=== PATIENT | female | born 1980 | race American Indian/Alaskan Native ===

== ENCOUNTER 2018-09-21 05:21 | Inpatient (IN) | payer OTHER ==
[2018-09-21] MEDS ORDERED: LACTATED RINGERS 500 ML IV ONE (05:33)
[2018-09-21] MEDS ORDERED: LACTATED RINGERS 1,000 ML IV SCH ×2 (06:00→10:00)
[2018-09-21 06:54] LABS: Bacteria,Urine 1+ /HPF (Negative); Bilirubin,Urine NEG (Negative); Blood,Urine NEG (Negative); Color,Urine Yellow (Yellow); Mucus,Urine FEW /HPF; Protein,Urine <15 mg/dL mg/dL (Negative); Urobilinogen,Urine < 2.0 mg/dL (<2.0)
[2018-09-21 07:32] LABS: Hematocrit 34.5 % (30.3-42.9); Hemoglobin 11.9 gm/dl (10.1-14.3); Mean Corpuscular HGB Conc 35 % (30-34); Mean Corpuscular Volume 80 fl (79-97); Platelet Count 657 K/mm3 (140-440); Red Blood Count 4.33 M/mm3 (3.65-5.03)
[2018-09-21] MEDS ORDERED: ZOFRAN IV PRN ×2 (09:02→09:44)
[2018-09-21] MEDS ORDERED: BRETHINE IVP PRN (09:02)
[2018-09-21] MEDS ORDERED: SUBLIMAZE IV PRN (09:02)
[2018-09-21] MEDS ORDERED: XYLOCAINE 2% INFILTRATI ONE (09:02)
[2018-09-21] MEDS ORDERED: BRETHINE SUB-Q PRN (09:02)
[2018-09-21] MEDS ORDERED: STADOL IV PRN (09:02)
[2018-09-21] MEDS ORDERED: AMPICILLIN/NS 2 GM/100 ML 2 GM/100 ML BAG IV ONE (09:02)
--- NOTE | 2018-09-21 09:09 | History and Physical Report ---
History of Present Illness Date of examination: 09/21/18 Date of admission: 09/21/18 09:01 Chief complaint: Labor History of present illness: Pt is a 38yo BF EDC 10/27/18; EGA 34 6/7 weeks presents to L&D complaining of RUC's q 2-4 mins. She received care in [place]. records are not available and GBS is unknown. BPP 6/8 with BARBARA 7.2 Past History Past Medical History: no pertinent history Past Surgical History: no surgical history Family/Genetic History: none Social history: no significant social history, single - Obstetrical History Expected Date of Delivery: 10/27/18 Actual Gestation: 34 Week(s) 6 Day(s) : 3 Medications and Allergies Allergies Allergy/AdvReac Type Severity Reaction Status Date / Time No Known Allergies Allergy Verified 09/21/18 05:33 Home Medications Medication Instructions Recorded Confirmed Last Taken Type Complete Caplet 1 tab PO DAILY 09/21/18 09/21/18 09/20/18 18:00 History Active Meds: Active Medications Lactated Ringer's (Lactated Ringers) 1,000 mls @ 125 mls/hr IV DIRECT QUIN Last Admin: 09/21/18 08:18 Dose: 125 mls/hr Documented by: Review of Systems All systems: negative - Vital Signs Vital signs: Vital Signs Temp BP 98.9 F 115/72 09/21/18 05:33 09/21/18 05:33 Temp Pulse Resp BP Pulse Ox 98.9 F 115/72 09/21/18 05:33 09/21/18 05:33 - Physical Exam Breasts: Positive: deferred Cardiovascular: Regular rate Lungs: Positive: Clear to auscultation Abdomen: Positive: normal appearance Genitourinary (Female): Positive: normal external genitalia Vagina: Positive: other (1+ meonium fluid) Uterus: Positive: enlarged Extremities: Positive: normal - Obstetrical FHR: category 1 Uterine Contraction Monitor Mode: External Cervical Dilatation: 10 Cervical Effacement Percentage: 100 station: +2 Uterine Contraction Pattern: Regular Uterine Tone Measurement Phase: Contraction Uterine Contraction Intensity: Strong/Firm Results Result Diagrams: 09/21/18 06:30 Abnormal lab results 09/21/18 Range/Units 06:30 MCHC 35 H (30-34) % RDW 20.0 H (13.2-15.2) % Plt Count 657 H (140-440) K/mm3 All other labs normal. Ultrasound: report reviewed (BPP /; BARBARA 7.2) Assessment and Plan - Patient Problems (1) 35 weeks gestation of Onset Date: 09/21/18 Current Visit: Yes Status: Acute Plan to address problem: A: IUP @ 34 6/7 weeks in labor Oligohydramnios Insufficient care Unknown GBS Meconium fluid P: Admit to L&D for expectant vaginal delivery Obtain labs NICU consultation (2) Insufficient care in third trimester Onset Date: 09/21/18 Current Visit: Yes Status: Acute
--- NOTE | 2018-09-21 09:23 | Procedure Note ---
OB Delivery Note - Delivery Date of Delivery: 09/21/18 Surgeon: BRUNO LAYNE Estimated blood loss: 100cc - Vaginal Delivery presentation: vertex Delivery position: OA Intrapartum events: no care, meconium, precipitous labor- <3hr Delivery induction: none Delivery monitor: external FHT, external uterine Route of delivery: Delivery placenta: spontaneous Delivery cord: nuchal cord, 3 umbilical vessels Episiotomy: none Delivery laceration: none Anesthesia: none Delivery comments: delivered OA and placed on Mom's chest for [id number] bonding and delayed cord clamping, cut by Dad - A at 1 minute: 8 at 5 minutes: 9 Infant Gender: Male ([id number])
[2018-09-21] MEDS ORDERED: LANSINOH TP PRN (09:44)
[2018-09-21] MEDS ORDERED: TUCKS PAD TP PRN (09:44)
[2018-09-21] MEDS ORDERED: TYLENOL PO PRN (09:44)
[2018-09-21] MEDS ORDERED: PHENERGAN PO PRN (09:44)
[2018-09-21] MEDS ORDERED: DULCOLAX PR PRN (09:44)
[2018-09-21] MEDS ORDERED: MILK OF MAGNESIA PO PRN (09:44)
[2018-09-21] MEDS ORDERED: PHENERGAN PR PRN (09:44)
[2018-09-21] MEDS ORDERED: BENADRYL PO PRN (09:44)
[2018-09-21] MEDS ORDERED: PITOCin/NS 20 UNIT/1000ML DRIP 20 UNITS/1,000 ML BAG IV SCH ×2 (10:00)
[2018-09-21] MEDS ORDERED: SODIUM CHLORIDE FLUSH SYRINGE 10 ML IV NR (10:00)
[2018-09-21] MEDS ORDERED: PITOCin/NS 30 UNIT/500ML 30 UNITS/500 ML BAG IV SCH ×2 (10:00)
--- NOTE | 2018-09-21 10:26 | Ultrasound Report ---
FINAL REPORT EXAM: US OB BPP WO NON-STRESS HISTORY: Contractions; variable decelerations COMPARISON: None. TECHNIQUE: Biophysical profile score was performed. FINDINGS: heart rate: 149 beats per minute Biophysical profile score: breathing movement: 0 movement: 2 posterior and tone: 2 Qualitative amniotic fluid volume: 2 Total score: 6 IMPRESSION: Abnormal biophysical profile score of 6 (0 points for breathing).
--- NOTE | 2018-09-21 10:29 | Ultrasound Report ---
FINAL REPORT EXAM: US OB LIMITED HISTORY: Contractions; variable decelerations COMPARISON: None. TECHNIQUE: Limited obstetric ultrasound was performed for amniotic fluid index. FINDINGS: There is a single intrauterine in cephalic presentation. Amniotic fluid index is 7.2 centimeters. heart rate is 156 beats per minute. IMPRESSION: Amniotic fluid index is 7.2 centimeters, which is low normal.
[2018-09-21 12:28] LABS: Anisocytosis 1+; Basophils % (Manual) 0 % (0.0-1.8); Eosinophils % (Manual) 0 % (0.0-4.3); Total Cells Counted 100
[2018-09-21 12:29] LABS: Platelet Estimate Consistent w Auto
[2018-09-21] MEDS: IBUPROFEN PO SCH ×3 (12:54→20:59)
[2018-09-21] MEDS ORDERED: AMPICILLIN/NS 1 GM/50 ML 1 GM/50 ML BAG IV SCH (13:00)
[2018-09-21] MEDS: NORCO 5/325 PO PRN (20:59)
[2018-09-21] MEDS: COLACE PO SCH (21:00)
[2018-09-21] MEDS: FEOSOL PO SCH (21:00)
[2018-09-21 21:32] LABS: Hematocrit 33.8 % (30.3-42.9); Hemoglobin 11.1 gm/dl (10.1-14.3)
[2018-09-21] MEDS: SENOKOT S PO SCH (22:00)
[2018-09-21] MEDS ORDERED: MINERAL OIL PO PRN (22:00)
[2018-09-22 01:56] LABS: Amphetamine Screen,Urine PRESUMPTIVE NEGATIVE; Benzodiazepines Screen,Urine PRESUMPTIVE NEGATIVE; Cannabinoid Screen,Urine PRESUMPTIVE NEGATIVE; Cocaine Screen,Urine PRESUMPTIVE NEGATIVE; Methadone Screen,Urine PRESUMPTIVE NEGATIVE; Opiate Screen,Urine PRESUMPTIVE NEGATIVE
[2018-09-22] MEDS: NORCO 5/325 PO PRN ×2 (04:19→17:16)
[2018-09-22] MEDS: IBUPROFEN PO SCH ×3 (04:19→23:39)
--- NOTE | 2018-09-22 09:23 | Progress Note ---
Assessment and Plan - Patient Problems (1) 35 weeks gestation of Onset Date: 09/21/18 Current Visit: Yes Status: Resolved (2) Insufficient care in third trimester Onset Date: 09/21/18 Current Visit: Yes Status: Resolved (3) (normal spontaneous vaginal delivery) Onset Date: 09/22/18 Current Visit: Yes Status: Resolved Plan to address problem: A: S/P - PPD #1 Doing well Asymptomatic anemia - stable P: May go home tomorrow. Subjective - Subjective Date of service: 09/22/18 Principal diagnosis: s/p - PPD #1 Interval history: Pt is feeling well without complaints. Bleeding improved. Patient reports: appetite normal, voiding normally, pain well controlled, flatus, ambulating normally, no dizzy ambulation, no nauseated [place]: doing well, in NICU Objective - Vital Signs Latest vital signs: Vital Signs Temp Pulse Resp BP BP Pulse Ox 09/22/18 07:58 98.0 F 66 20 133/78 100 09/22/18 00:59 97.4 F L 68 18 129/60 09/21/18 20:55 97.2 F L 75 18 128/75 99 09/21/18 16:25 98.2 F 70 18 111/56 09/21/18 12:45 99.7 F H 87 18 125/82 98 09/21/18 11:01 74 123/74 09/21/18 11:00 74 18 123/74 09/21/18 10:46 76 117/62 09/21/18 10:45 76 18 117/62 09/21/18 10:31 80 131/58 98 09/21/18 10:30 78 18 131/58 98 09/21/18 10:26 76 96 09/21/18 10:21 75 97 09/21/18 10:16 82 97 09/21/18 10:15 82 18 128/63 128/63 97 09/21/18 10:11 71 97 09/21/18 10:06 85 99 09/21/18 10:01 80 97 09/21/18 10:00 80 18 133/65 133/65 97 09/21/18 09:56 72 98 09/21/18 09:51 79 98 09/21/18 09:46 72 131/63 99 02/17/19 09:45 74 18 131/63 98 09/21/18 09:41 80 99 09/21/18 09:36 75 99 09/21/18 09:31 84 100 09/21/18 09:27 78 137/78 09/21/18 09:26 98.4 F 76 18 137/78 100 Intake and Output 09/21/18 09/22/18 09/22/18 22:59 06:59 14:59 Intake Total 560 240 Output Total 800 1150 Balance -240 -910 Intake: Oral 320 Intake, Free Water 240 240 Output: Urine 800 1150 Void 800 1150 Other: Total, Intake Amount 320 Total, Output Amount 200 250 # Voids Void 2 - Exam Breasts: Present: deferred Abdomen: Present: normal appearance, soft Uterus: Present: normal, firm, fundal height below umbilicus Extremities: Present: normal - Labs Labs: Abnormal lab results 09/21/18 Range/Units 06:30 Seg Neuts % (Manual) 77.0 H (40.0-70.0) % Monocytes % (Manual) 9.0 H (0.0-7.3) % Laboratory Tests 09/21/18 09/21/18 09/21/18 06:30 06:30 06:30 WBC 8.5 RBC 4.33 Hgb 11.9 Hct 34.5 MCV 80 MCH 28 MCHC 35 H RDW 20.0 H Plt Count 657 H Lymph % (Auto) Terminal System Operator [place] % (Auto) Terminal System Operator Eos % (Auto) Terminal System Operator Baso % (Auto) Terminal System Operator Lymph # Terminal System Operator [place]o # Terminal System Operator Eos # Terminal System Operator Baso # Terminal System Operator Add Manual Diff Complete Total Counted 100 Seg Neutrophils % Terminal System Operator Seg Neuts % (Manual) 77.0 H Band Neutrophils % 0 Lymphocytes % (Manual) 14.0 Reactive Lymphs % (Man) 0 Monocytes % (Manual) 9.0 H Eosinophils % (Manual) 0 Basophils % (Manual) 0 Metamyelocytes % 0 Myelocytes % 0 Promyelocytes % 0 Blast Cells % 0 Nucleated RBC % Not Reportable Seg Neutrophils # Terminal System Operator Seg Neutrophils # Man 6.5 Band Neutrophils # 0.0 Lymphocytes # (Manual) 1.2 Abs React Lymphs (Man) 0.0 Monocytes # (Manual) 0.8 Eosinophils # (Manual) 0.0 Basophils # (Manual) 0.0 Metamyelocytes # 0.0 Myelocytes # 0.0 Promyelocytes # 0.0 Blast Cells # 0.0 WBC Morphology Not Reportable Hypersegmented Neuts Not Reportable Hyposegmented Neuts Not Reportable Hypogranular Neuts Not Reportable Smudge Cells Not Reportable Toxic Granulation Not Reportable Toxic Vacuolation Not Reportable Dohle Bodies Not Reportable Pelger-Huet Anomaly Not Reportable David Rods Not Reportable Platelet Estimate Consistent w auto Clumped Platelets Not Reportable Plt Clumps, EDTA Not Reportable Large Platelets Not Reportable Giant Platelets Not Reportable Platelet Satelliting Not Reportable Plt Morphology Comment Not Reportable RBC Morphology Not Reportable Dimorphic RBCs Not Reportable Polychromasia Not Reportable Hypochromasia Not Reportable Poikilocytosis Not Reportable Anisocytosis 1+ Microcytosis Not Reportable Macrocytosis Not Reportable Spherocytes Not Reportable Pappenheimer Bodies Not Reportable Sickle Cells Not Reportable Target Cells Not Reportable Tear Drop Cells Not Reportable Ovalocytes Not Reportable Helmet Cells Not Reportable Lin-Manti Bodies Not Reportable Shock Rings Not Reportable Reymundo Cells Not Reportable Bite Cells Not Reportable Crenated Cell Not Reportable Elliptocytes Not Reportable Acanthocytes (Spur) Not Reportable Rouleaux Not Reportable Hemoglobin C Crystals Not Reportable Schistocytes Not Reportable Malaria parasites Not Reportable Luis Antonio Bodies Not Reportable Hem Pathologist Commnt No Urine Color Yellow Urine Turbidity Clear Urine pH 6.0 Ur Specific [place] 1.009 Urine Protein <15 mg/dl Urine Glucose (UA) Neg Urine Ketones Neg Urine Blood Neg Urine Nitrite Neg Urine Bilirubin Neg Urine Urobilinogen < 2.0 Ur Leukocyte Esterase Neg Urine WBC (Auto) 2.0 Urine RBC (Auto) 1.0 U Epithel Cells (Auto) < 1.0 Urine Bacteria (Auto) 1+ Urine Mucus Few Urine Opiates Screen Urine Methadone Screen Ur Barbiturates Screen Ur Phencyclidine Scrn Ur Amphetamines Screen U Benzodiazepines Scrn Urine Cocaine Screen U Marijuana (THC) Screen Drugs of Abuse Note Hep Bs Antigen HIV 1&2 Antibody Rapid HIV P24 Antigen Rubella IgG Antibody Immune Blood Type Antibody Screen 09/21/18 09/21/18 09/21/18 06:30 06:30 15:31 WBC RBC Hgb Hct MCV MCH MCHC RDW Plt Count Lymph % (Auto) [place]ter[place] % (Auto) Eos % (Auto) Baso % (Auto) Lymph # [place] # Eos # Baso # Add Manual Diff Total Counted Seg Neutrophils % Seg Neuts % (Manual) Band Neutrophils % Lymphocytes % (Manual) Reactive Lymphs % (Man) Monocytes % (Manual) Eosinophils % (Manual) Basophils % (Manual) Metamyelocytes % Myelocytes % Promyelocytes % Blast Cells % Nucleated RBC % Seg Neutrophils # Seg Neutrophils # Man Band Neutrophils # Lymphocytes # (Manual) Abs React Lymphs (Man) Monocytes # (Manual) Eosinophils # (Manual) Basophils # (Manual) Metamyelocytes # Myelocytes # Promyelocytes # Blast Cells # WBC Morphology Hypersegmented Neuts Hyposegmented Neuts Hypogranular Neuts Smudge Cells Toxic Granulation Toxic Vacuolation Dohle Bodies Pelger-Huet Anomaly David Rods Platelet Estimate Clumped Platelets Plt Clumps, EDTA Large Platelets Giant Platelets Platelet Satelliting Plt Morphology Comment RBC Morphology Dimorphic RBCs Polychromasia Hypochromasia Poikilocytosis Anisocytosis Microcytosis Macrocytosis Spherocytes Pappenheimer Bodies Sickle Cells Target Cells Tear Drop Cells Ovalocytes Helmet Cells Lin-Manti Bodies Shock Rings [place] Cells Bite Cells Crenated Cell Elliptocytes Acanthocytes (Spur) Rouleaux Hemoglobin C Crystals Schistocytes Malaria parasites Luis Antonio Bodies Hem Pathologist Commnt Urine Color Urine Turbidity Urine pH Ur Specific [place] Urine Protein Urine Glucose (UA) Urine Ketones Urine Blood Urine Nitrite Urine Bilirubin Urine Urobilinogen Ur Leukocyte Esterase Urine WBC (Auto) Urine RBC (Auto) U Epithel Cells (Auto) Urine Bacteria (Auto) Urine Mucus Urine Opiates Screen Urine Methadone Screen Ur Barbiturates Screen Ur Phencyclidine Scrn Ur Amphetamines Screen U Benzodiazepines Scrn Urine Cocaine Screen U Marijuana (THC) Screen Drugs of Abuse Note Hep Bs Antigen Non-reactive HIV 1&2 Antibody Rapid Non react HIV P24 Antigen Non react Rubella IgG Antibody Blood Type O POSITIVE Antibody Screen Negative 09/21/18 09/22/18 20:56 01:40 WBC RBC Hgb 11.1 Hct 33.8 MCV MCH MCHC RDW Plt Count Lymph % (Auto) [place] % (Auto) Eos % (Auto) Baso % (Auto) Lymph # [place] # Eos # Baso # Add Manual Diff Total Counted Seg Neutrophils % Seg Neuts % (Manual) Band Neutrophils % Lymphocytes % (Manual) Reactive Lymphs % (Man) Monocytes % (Manual) Eosinophils % (Manual) Basophils % (Manual) Metamyelocytes % Myelocytes % Promyelocytes % Blast Cells % Nucleated RBC % Seg Neutrophils # Seg Neutrophils # Man Band Neutrophils # Lymphocytes # (Manual) Abs React Lymphs (Man) Monocytes # (Manual) Eosinophils # (Manual) Basophils # (Manual) Metamyelocytes # Myelocytes # Promyelocytes # Blast Cells # WBC Morphology Hypersegmented Neuts Hyposegmented Neuts Hypogranular Neuts Smudge Cells Toxic Granulation Toxic Vacuolation Dohle Bodies Pelger-Huet Anomaly David Rods Platelet Estimate Clumped Platelets Plt Clumps, EDTA Large Platelets Giant Platelets Platelet Satelliting Plt Morphology Comment RBC Morphology Dimorphic RBCs Polychromasia Hypochromasia Poikilocytosis Anisocytosis Microcytosis Macrocytosis Spherocytes Pappenheimer Bodies Sickle Cells Target Cells Tear Drop Cells Ovalocytes Helmet Cells Lin-Manti Bodies Shock Rings [place] Cells Bite Cells Crenated Cell Elliptocytes Acanthocytes (Spur) Rouleaux Hemoglobin C Crystals Schistocytes Malaria parasites Lui Santonio Bodies Hem Pathologist Commnt Urine Color Urine Turbidity Urine pH Ur Specific [place] Urine Protein Urine Glucose (UA) Urine Ketones Urine Blood Urine Nitrite Urine Bilirubin Urine Urobilinogen Ur Leukocyte Esterase Urine WBC (Auto) Urine RBC (Auto) U Epithel Cells (Auto) Urine Bacteria (Auto) Urine Mucus Urine Opiates Screen Presumptive negative Urine Methadone Screen Presumptive negative Ur Barbiturates Screen Presumptive negative Ur Phencyclidine Scrn Presumptive negative Ur Amphetamines Screen Presumptive negative U Benzodiazepines Scrn Presumptive negative Urine Cocaine Screen Presumptive negative U Marijuana (THC) Screen Presumptive negative Drugs of Abuse Note Disclamer Hep Bs Antigen HIV 1&2 Antibody Rapid HIV P24 Antigen Rubella IgG Antibody Blood Type Antibody Screen
[2018-09-22] MEDS ORDERED: M-M-R II VACCINE SUB-Q ONE (10:44)
[2018-09-22] MEDS ORDERED: BOOSTRIX IM ONE (10:44)
[2018-09-22] MEDS: COLACE PO SCH ×2 (10:56→21:52)
[2018-09-22] MEDS: SENOKOT S PO SCH ×2 (10:56→22:15)
[2018-09-22] MEDS: FEOSOL PO SCH ×2 (10:56→21:52)
[2018-09-22] MEDS: PRENATAL VITAMIN PO SCH (10:56)
--- NOTE | 2018-09-22 14:14 | Discharge Summary ---
Providers - Providers Date of Admission: 09/21/18 09:01 Date of discharge: 09/23/18 Attending physician: BRUNO LAYNE Primary care physician: BRUNO LAYNE Hospitalization Reason for admission: active labor, IUP - Delivery: Episiotomy: none Laceration: none Other procedures: none complications: none Discharge diagnosis: IUP at term delivered [place] baby: male Hospital course: Unremarkable. Condition at discharge: Good Disposition: DC-01 TO HOME OR SELFCARE - Discharge Diagnoses (1) 35 weeks gestation of Status: Resolved (2) Insufficient care in third trimester Status: Resolved (3) (normal spontaneous vaginal delivery) Status: Resolved Plan - Discharge Medications Prescriptions: Ferrous Sulfate [Feosol 325 MG tab] 325 mg PO BID #60 tablet Ibuprofen [Motrin 600 MG tab] 600 mg PO Q6H #30 tablet Vit-Fe Fumar-FA [ Vitamin] 1 each PO QDAY #30 tablet - Provider Discharge Summary Activity: routine, no sex for 6 weeks, no heavy lifting 4 weeks, no strenuous exercise Diet: routine Instructions: routine Additional instructions: [] Smoking cessation referral if applicable(refer to patient education folder for contact #) [] Refer to [facility]'s [facility] Booklet Call your doctor immediately for: * Fever > 100.5 * Heavy vaginal bleeding ( >1 pad per hour) * Severe persistent headache * Shortness of breath * Reddened, hot, painful area to leg or breast * Drainage or odor from incision. * Keep incision clean and dry at all times and follow doctor's instructions regarding bathing/showering - Follow up plan Follow up: BRUNO LAYNE MD [Primary Care Provider] - 6 Weeks
[2018-09-23] MEDS: IBUPROFEN PO SCH ×3 (05:29→15:30)
[2018-09-23] MEDS: PRENATAL VITAMIN PO SCH (15:30)
[2018-09-23] MEDS: COLACE PO SCH (15:30)
[2018-09-23] MEDS: FEOSOL PO SCH (15:30)
[2018-09-23] MEDS: SENOKOT S PO SCH (15:30)
[2018-09-23 17:39] VITALS: BP 124/79
== END 2018-09-23 17:25 | disposition home or self-care (01) | DRG 805 ==
LOC: TRG 05:21 → OBSVTOIN 09:01 → LD 09:01 → OB 12:42
PROVIDERS: ADMIT Obstetrics & Gynecology; ATTEND Obstetrics & Gynecology
PROC: 10E0XZZ Delivery of Products of Conception, External Approach (ICD-10-PCS; principal; 2018-09-21)
DX: O41.03X0 Oligohydramnios, third trimester, not applicable or unspecified (principal); O60.14X0 Preterm labor third trimester with preterm delivery third trimester, not applicable or unspecified; Z37.0 Single live birth; O77.0 Labor and delivery complicated by meconium in amniotic fluid; O62.3 Precipitate labor; Z3A.34 34 weeks gestation of pregnancy; O69.81X0 Labor and delivery complicated by cord around neck, without compression, not applicable or unspecified; O90.81 Anemia of the puerperium; D64.9 Anemia, unspecified
CPT/HCPCS: 36415; 59025; 76815; 76819; 80307; 81001; 85007; 85014; 85018; 85025; 86706; 86762; 86850; 86900; 86901; 87806; 96360; 96361; G0378; A6250; J2590; J7120